=== PATIENT | female | born 1935 | race Caucasian/White ===

== ENCOUNTER → 2019-12-12 16:36 | Outpatient (CLI) | payer MEDICARE, SELFPAY ==
[2019-12-12 16:59] LABS: Basophils % 0.5 % (0.1-2.0); Eosinophils # 0.3 K/mm3 (0.0-0.4); Eosinophils % 3.1 % (0.1-12.0); Hematocrit 38.9 % (37.0-47.0); Hemoglobin 13.2 g/dL (12.2-16.2); Lymphocytes # 1.6 K/mm3 (0.7-4.5); Lymphocytes % 18.6 % (10-50); Mean Corpuscular HGB Conc 33.9 g/dL (31.8-35.4); Mean Corpuscular Hemoglobin 31.7 pg (27.0-31.2); Mean Corpuscular Volume 93.5 fl (81-99); Mean Platelet Volume 8.2 fl (7.4-10.4); Monocytes # 0.4 K/mm3 (0.1-1.0); Monocytes % 5.2 % (1.7-9.3); Neutrophils # 6.3 K/mm3 (1.8-7.8); Neutrophils % 72.7 % (37.0-80.0); Platelet Count 293 K/mm3 (142-424); Red Blood Count 4.16 M/mm3 (4.20-5.40); Red Cell Distribution Width 19.1 % (11.5-17.5); White Blood Count 8.6 K/mm3 (4.8-10.8)
[2019-12-12 20:20] LABS: Iron 62 ug/dL (37-170)
[2019-12-12 20:38] LABS: T4 (Thyroxine) 16.9 ug/dl (5.53-11.0)
[2019-12-12 20:52] LABS: Thyroid Stimulating Hormone 1.15 uIU/mL (0.465-4.68)
== END ==
PROVIDERS: Visit Provider Family Medicine
DX: D64.9 Anemia, unspecified (principal)
CPT/HCPCS: 83540; 84436; 84443; 85025